=== PATIENT | male | born 1965 | race Caucasian/White ===

== ENCOUNTER 2017-06-19 13:11 | Day surgery (SDC) | payer OTHER ==
[~2017-06-19] VITALS: Ht 180.3 cm; Wt 111.1 kg
[~2017-06-19 13:11] MED LIST: LOSA25 PO
== END 2017-06-19 15:35 | disposition home or self-care (01) ==
LOC: ORSCSDS 13:11
PROVIDERS: Surgery
PROC: 0DJD8ZZ Inspection of Lower Intestinal Tract, Via Natural or Artificial Opening Endoscopic (ICD-10-PCS; principal; 2017-06-19 14:30)
DX: Z12.11 Encounter for screening for malignant neoplasm of colon (principal); Z80.0 Family history of malignant neoplasm of digestive organs; I10 Essential (primary) hypertension; E78.5 Hyperlipidemia, unspecified; E66.9 Obesity, unspecified; Z68.35 Body mass index [BMI] 35.0-35.9, adult; Z79.899 Other long term (current) drug therapy
CPT/HCPCS: J7120